=== PATIENT | female | born 1925 | race Caucasian/White ===

== ENCOUNTER 2016-10-05 13:54 | Emergency (ER) | payer MEDICARE ==
[~2016-10-05] VITALS: Ht 162.6 cm; Wt 56.8 kg
[~2016-10-05 13:54] MED LIST: /HCTZ25TA PO; AMLO5TAB2 PO; ARIC5TAB PO; ASPI81TA85 PO; ASPI81TAEC PO; ATOR1TAB19 PO; AUGM875T27 PO; CITA20TA2 PO; CITA20TA4 PO; DONETAB5 PO; HYDR25TAB PO; LIPI10TA PO; LOVE1INJ SC; LUMI0.01 OU; MIRA3350 PO; MULT1TAB8 PO; POTA10TA16 PO; TYLE325T5 PO; VITA100066 PO
[2016-10-05] MEDS ORDERED: MACR100C3 PO (14:11)
[2016-10-05] MEDS ORDERED: ACETAMINOPHEN 325 MG TAB As Ordered ONE (15:31)
[2016-10-05] MEDS ORDERED: ACETAMINOPHEN TAB 650MG DOSE (2X325MG) PO ONE (15:45)
[2016-10-05 16:16] VITALS: BP 171/89
--- NOTE | 2016-10-06 07:49 | REP ---
Right wrist series: Four views. History: Pain. Findings: There is advanced diffuse osteoporosis. Soft tissue swelling is seen about the wrist. There is osteoarthritis at the first carpometacarpal articulation. No fracture is seen. Impression: Diffuse osteopenia. Soft tissue swelling. No fracture or other acute abnormality. Signed by Misbah Méndez MD 10/06/2016 08:59 A
== END 2016-10-05 16:23 | disposition home or self-care (01) ==
LOC: M ED 15:19
DX: S63.521A Sprain of radiocarpal joint of right wrist, initial encounter (principal); W01.10XA Fall on same level from slipping, tripping and stumbling with subsequent striking against unspecified object, initial encounter; Y92.099 Unspecified place in other non-institutional residence as the place of occurrence of the external cause; Y93.01 Activity, walking, marching and hiking; Y99.9 Unspecified external cause status; M85.88 Other specified disorders of bone density and structure, other site; Z79.82 Long term (current) use of aspirin; Z79.899 Other long term (current) drug therapy; Z91.041 Radiographic dye allergy status

== ENCOUNTER 2016-11-16 22:10 | Inpatient (IN) | payer MEDICARE ==
[~2016-11-16] VITALS: Ht 157.5 cm; Wt 58.6 kg
[~2016-11-16 22:10] MED LIST changes: -AUGM875T27 PO; +AUGM875T28 PO; +MACR100C43 PO
--- NOTE | 2016-11-16 23:30 | REPUSA ---
CT of the head Clinical history: syncope. Comparison: 09/05/2015. Protocol: Multiple axial CT images obtained with 5 mm slice thickness were obtained through the head without administration of contrast. Findings: The ventricles and sulci are symmetric but prominent in size bilaterally. 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 There are periventricular areas of low attenuation throughout the deep white matter. There is no evidence of acute hemorrhage or infarct. There is no m idline shift, mass effect, or extra-axial fluid collection. The osseous structures are unremarkable. The visualized paranasal sinuses and mastoid air cells are clear. Impression: No acute hemorrhage or infarct. Findings are consistent with stable moderate age-related atrophy and chronic small vessel ischemic disease.
[2016-11-16 23:43] LABS: BASO # 0.1 K/mm3 (0.0-0.2); BASO % 0.6 % (0.0-1.0); EOS # 0.1 K/mm3 (0.0-0.50); LARGE UNSTAINED CELL # 0.1 K/mm3 (0.0-0.4); LARGE UNSTAINED CELL % 0.6 % (0.0-4.0); LYMPH # 0.9 K/mm3 (1.5-4.5); MEAN CORPUSCULAR HEMOGLOBIN 30.5 pg (27.0-33.0); MEAN CORPUSCULAR HGB CONC 33.5 g/dl (32.0-36.5); MEAN CORPUSCULAR VOLUME 91.1 fl (80.0-96.0); MONO # 0.4 K/mm3 (0.0-0.8); MONO % 3.8 % (0.0-5.0); NEUTROPHILS # 8.7 K/mm3 (1.8-7.7); PLATELET COUNT, AUTOMATED 267 k/mm3 (150-450); RED CELL DISTRIBUTION WIDTH 13.8 % (11.5-14.5); WHITE BLOOD COUNT 10.2 K/mm3 (4.0-10.0)
[2016-11-17 00:16] LABS: ANION GAP 7 MEQ/L (8-16); BLOOD UREA NITROGEN 22 MG/DL (7-18); CALCIUM LEVEL 8.9 MG/DL (8.8-10.2); CARBON DIOXIDE LEVEL 30 MEQ/L (21-32); CHLORIDE LEVEL 107 MEQ/L (98-107); FREE T4 1.02 NG/DL (0.76-1.46); GLOMERULAR FILTRATION RATE 55.6 (>32); GLUCOSE, FASTING 135 MG/DL (83-110); MAGNESIUM LEVEL 1.9 MG/DL (1.8-2.4); POTASSIUM SERUM 3.2 MEQ/L (3.5-5.1); SODIUM LEVEL 144 MEQ/L (136-145)
[2016-11-17] MEDS ORDERED: SODIUM CHLORIDE 0.9% 1000 ML IV ONE (00:30)
[2016-11-17] MEDS: NS 1,000 ML IV SCH ×2 (00:30→11:44)
[2016-11-17] MEDS ORDERED: POTASSIUM CHLORIDE 10 MEQ SR TABLET PO ONE ×2 (01:00→10:00)
--- NOTE | 2016-11-17 01:00 | REPUSA ---
CT of the right hip without contrast Clinical statement: Pain. Technique: Multiple axial CT images were obtained with 5 mm cuts through the right hip without admini stration of contrast. Coronal and sagittal reconstructions were also obtained. No comparison is available. Findings: The open reduction internal fixation of the proximal right femur is intact. There is no bhupinder dence of loosening or displacement of the surgical hardware. There is an acute nondisplaced fracture of the right inferior pubic ramus. The superficial soft tissues are unremarkable. The joint space is moderately narrow. Impression: 1. Acute nondisplaced fracture of the right inferior pubic ramus. 2. Moderate right hip osteoarthritis. 3. Open reduction internal fixation of the proximal right femur is intact.
[2016-11-17] MEDS ORDERED: HYDR25TAB PO (01:38)
[2016-11-17] MEDS ORDERED: VITMTA PO (01:38)
[2016-11-17] MEDS ORDERED: ASPI81TA21 PO (01:39)
--- NOTE | 2016-11-17 02:09 | ECGEPIP ---
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
[2016-11-17] MEDS ORDERED: BISACODYL 5 MG TAB PO PRN (02:45)
[2016-11-17 03:00] VITALS: BP 169/79
--- NOTE | 2016-11-17 03:19 | HPEPDOC ---
General Date of Admission Nov 17, 2016 at 01:49 Primary Care Physician: Jr Bryant Collins Attending Physician: SHERINE MOORE MD Chief Complaint The patient is a 89-year-old female admitted with a reason for visit of Pelvic Fracture. Source: Other (Son (Caregiver)) History of Present Illness PRIMARY CARE PROVIDER: Dr. Jake Bryant CHIEF COMPLAINT: fall and R hip pain HISTORY OF PRESENT ILLNESS: Ms. Lockett is a 89 yo F with a PMH of HTN, HLD, diabetes controlled with diet , aortic stenosis with aortic regurgitation, TIA hx, Alzheimer's dementia, and glaucoma who presented to the [facility] ED after an unwitnessed fall in her bathroom at home at ~11 PM on 11/16. Adopted son (patient's actual grandson) states that patient yelled and called son to where she was lying down on her back in her bathroom. Son states he then went into the living room to call 9-1-1. During that time, patient reportedly independently got up without telling son, used her cane to get back into her bedroom and back onto her bed. She then reportedly went from her bed into her walker (has a sitting walker). By the time son came back from the living room to patient's room, patient was already in her walker. Then, son reports that patient was brought to the ED. Due to dementia, patient unable to remember details of her fall and what events occurred prior to fall. Denies dizziness or lightheadedness. Denies fevers, chills, headache, chest pain, SOB, nausea, vomiting, diarrhea, constipation, abdominal pain, blurred vision (wears glasses). Denies pain anywhere when not moving. Otherwise, she admits to R-sided pelvic pain. Denies runny nose, sore throat, cough. Patient's son states patient's urine was a little darker than usual. When asked patient if she had urinary symptoms, she stated she had to " go right now", however she was not able to urinate. Patient admitted to her feet feeling cold. Denied remembering hitting her head. In the ED, patient was afebrile but was found to have positive orthostatic vital signs. In addition, she was found to be hypokalemic with K of 3.2 and this was replaced with 60 mEq of KCl. She was given 500 mL bolus of NS and NS was continued at 75 mL/hr. BMP was significant for K of 3.2, BUN of 22, and Cr was normal at 1, fasting glucose was 135. Lactic acid was WNL. Mg was 1.9. CKMB and troponin 1st set was negative. CBC was significant for WBC of 10.2. TSH and Free T4 were WNL. PAST MEDICAL HISTORY: HTN HLD Diabetes mellitus controlled with diet Aortic stenosis with aortic regurgitation TIA hx Alzheimer's dementia Glaucoma PAST SURGICAL HISTORY: Hysterectomy Cholecystectomy R Intramedullary nailing of the R hip and femur for comminuted R hip fracture MEDICATIONS: Please see below for full list. ALLERGIES: CT dye SOCIAL HISTORY: Lives at home with son who is her senior strategy analyst; son receives disability Former smoker. Quit smoking many years ago. Denies being a heavy smoker ever. Denies EtOH use. Denies illicit drug use. Admits to having 1 cat and 1 dog. FAMILY HISTORY: Mother: many strokes Daughter: of woman cancer in 2005, had thyroid disease Sister: heart problem, back cancer with surgery on back Sister: of breast cancer Brother: of [place]. CODE STATUS: DNR (as per son)--has a copy of this order at home and son states there is a copy of this order at the hospital itself REVIEW OF SYSTEMS: All ROS are negative except for that which is stated above in the HPI. LABORATORY DATA: Please see below for full labs. MICROBIOLOGY: Urine cx ordered. ELECTROCARDIOGRAM: Sinus Rhythm with marked L axis deviation, pattern consistent with pulmonary disease, ventricular rate: 60 bpm, OH interval: 193 ms, QRS duration: 90 ms, QTc: 419 ms Similar EKG to prior when compared to 09/05/15 RADIOLOGY: Head CT without contrast: (-) CT of the R hip without contrast: 1. Acute nondisplaced fracture of the right inferior pubic ramus. 2. Moderate right hip osteoarthritis. 3. Open reduction internal fixation of the proximal right femur is intact. ASSESSMENT: 89 yo F is presenting for an acute nondisplaced fracture of the R inferior pubic ramus and orthostatic hypotension. Had hypokalemia of 3.2 and leukocytosis of 10.2. PLAN: Admit to inpatient service. Give NS @ 75 mLs/hr as orthostatic vital signs were (+). Obtain UA and urine cx. Monitor daily CBCs and BMPs as well as daily Mg levels. Give pain medication: tylenol PRN mild pain and percocet PRN moderate pain. Continue home medications. Consult physical therapy for further treatment and recommendations. DVT ppx: SC heparin DNR as per son who states we have the form at the hospital Immunizations as per protocol. My preceptor for this patient encounter was Dr. Sherine Moore, and was physically present in the building during the encounter and was fully available. As needed , all aspects of the patient interview, examination, medical decision making process, and medical care plan development were reviewed and approved by the preceptor. Preceptor is aware and concurs with the plan as stated in the body of this note and will attest to such by his/her cosignature. Home Medications Scheduled (Senna Plus 8.6-50 mg) 1 Tab Tab, 1 TAB PO BID Amlodipine Besylate (Amlodipine Besylate) 10 Mg Tab, 10 MG PO DAILY Aspirin (Aspir-Low) 81 Mg Tab, 81 MG PO DAILY, (Reported) Atorvastatin Calcium (Atorvastatin Calcium) 10 Mg Tab, 10 MG PO QHS, (Reported) Citalopram Hydrobromide (Citalopram Hydrobromide) 20 Mg Tab, 20 MG PO DAILY, ( Reported) Donepezil Hcl (Donepezil HCl) 5 Mg Tab, 5 MG PO QHS, (Reported) Ferrous Sulfate (Ferrous Sulfate) 325 Mg Tab, 325 MG PO BID Hydrochlorothiazide (Hydrochlorothiazide) 25 Mg Tab, 25 MG PO DAILY, (Reported) Multivitamins *[facility] STOCKED* (Thera M Plus *[facility] STOCKED*) 1 Tab Tab, 1 TAB PO DAILY, (Reported) Potassium Chloride (Potassium Chloride ER) 10 Meq Tab, 10 MEQ PO BID, (Reported) Scheduled PRN Bisacodyl (Bisacodyl EC) 5 Mg Tab, 5 MG PO DAILYPRN PRN for CONSTIPATION Oxycodone/Acetaminophen (Percocet 5MG/325MG Tablet) 1 Tab Tab, 1 TAB PO Q4HP PRN for MODERATE PAIN (PS 5-7) Allergies Coded Allergies: Contrast Media (Verified Allergy, Intermediate, red rash, 10/05/16) Physical Examination General Exam: Positive: Alert, Cooperative, No Acute Distress, Other (elderly female resting comfortably in bed) Eye Exam: Positive: PERRLA, EOMI, Other Eye Symptoms (Some yellow crusting noted in eyelashes of R eye), Negative: Sclera icteric ENT Exam: Positive: Atraumatic, Mucous membr. moist/pink, Pharynx Normal, Tongue Midline, Negative: Pharyngeal Edema Neck Exam: Positive: Supple, Negative: JVD, thyromegaly, Lymphadenopathy Chest Exam: Positive: Clear to auscultation, Normal air movement, Negative: Rales, Rhonchi, Wheezing Heart Exam: Positive: Rate Normal, Regular Rhythm, Normal S1, Normal S2, Negative: Gallops, Murmurs, Rubs Abdomen Exam: Positive: Normal bowel sounds, Soft, Negative: Tenderness, Hepatospenomegaly Extremity Exam: Positive: Normal pulses, Other (very cool feet to touch bilaterally. +Tenderness with pressure to R lateral leg/hip in area of R pelvis. ), Negative: Clubbing, Cyanosis, Edema Skin Exam: Negative: Rash Neuro Exam: Positive: Normal Speech, Other (CN 2-12 intact bilaterally. 5/5 strength in upper extremities bilaterally. Able to extend LLE. Unable to lift and extend RLE most likely secondary to pain. ) Psych Exam: Positive: Mental status NL, Mood NL, Other (Oriented to person, place, but not to time: not to month, day, or year. Could not name the president. ), Negative: Memory Intact, Oriented x 3 Vital Signs Vital Signs Date Time Temp Pulse Resp B/P (MAP) Pulse Ox O2 Delivery O2 Flow Rate FiO2 11/17/16 01:55 68 99 11/16/16 23:52 142/66 (91) 140/65 (90) 152/65 (94) 11/16/16 22:12 98.9 16 Room Air Laboratory Data Labs 24H Laboratory Tests 2 11/16/16 23:37: White Blood Count 10.2H, Red Blood Count 4.33, Hemoglobin 13.2, Hematocrit 39.4 , Mean Corpuscular Volume 91.1, Mean Corpuscular Hemoglobin 30.5, Mean Corpuscular Hemoglobin Concent 33.5, Red Cell Distribution Width 13.8, Platelet Count 267, Neutrophils (%) (Auto) 86.0H, Lymphocytes (%) (Auto) 8.0L, Monocytes (%) (Auto) 3.8, Eosinophils (%) (Auto) 1.0, Basophils (%) (Auto) 0.6, Neutrophils # (Auto) 8.7H, Lymphocytes # (Auto) 0.9L, Monocytes # (Auto) 0.4, Eosinophils # (Auto) 0.1, Basophils # (Auto) 0.1, Large Unclassified Cells % 0.6 , Large Unclassified Cells # 0.1, Anion Gap 7L, Glomerular Filtration Rate 55.6 , Lactic Acid Level 1.5, Blood Urea Nitrogen 22H, Creatinine 1.00, Sodium Level 144, Potassium Level 3.2L, Chloride Level 107, Carbon Dioxide Level 30, Calcium Level 8.9, Total Creatine Kinase 151, Magnesium Level 1.9, Creatine Kinase MB 3.2, Creatine Kinase MB Relative Index 2.11, Troponin I < 0.02, Thyroid Stimulating Hormone (TSH) 2.410, Free Thyroxine 1.02 11/16/16 23:43: Bedside Glucose (Misc Panel) 111H CBC/BMP Laboratory Tests 11/16/16 23:37 Red Blood Count 4.33, Mean Corpuscular Volume 91.1, Mean Corpuscular Hemoglobin 30.5, Mean Corpuscular Hemoglobin Concent 33.5, Red Cell Distribution Width 13.8 , Neutrophils (%) (Auto) 86.0 H, Lymphocytes (%) (Auto) 8.0 L, Monocytes (%) ( Auto) 3.8, Eosinophils (%) (Auto) 1.0, Basophils (%) (Auto) 0.6, Neutrophils # ( Auto) 8.7 H, Lymphocytes # (Auto) 0.9 L, Monocytes # (Auto) 0.4, Eosinophils # ( Auto) 0.1, Basophils # (Auto) 0.1, Calcium Level 8.9, Total Creatine Kinase 151 Plan / VTE VTE Prophylaxis Ordered?: Yes (heparin) SYEDA HOLLINS OGME-1 Nov 17, 2016 03:19
[2016-11-17 06:00] VITALS: BP 167/79
[2016-11-17] MEDS: HEPARIN SOD (PORCINE) 5000 UNITS/ML VIAL SC SCH ×3 (06:04→20:22)
[2016-11-17 07:17] LABS: MEAN CORPUSCULAR HEMOGLOBIN 30.7 pg (27.0-33.0); MEAN CORPUSCULAR HGB CONC 33.7 g/dl (32.0-36.5); MEAN CORPUSCULAR VOLUME 90.9 fl (80.0-96.0); RED CELL DISTRIBUTION WIDTH 13.8 % (11.5-14.5); WHITE BLOOD COUNT 7.7 K/mm3 (4.0-10.0)
[2016-11-17 07:39] LABS: ANION GAP 8 MEQ/L (8-16); BLOOD UREA NITROGEN 20 MG/DL (7-18); CALCIUM LEVEL 8.3 MG/DL (8.8-10.2); CARBON DIOXIDE LEVEL 28 MEQ/L (21-32); CHLORIDE LEVEL 109 MEQ/L (98-107); CREATININE FOR GFR 0.72 MG/DL (0.55-1.02); GLOMERULAR FILTRATION RATE > 60.0 (>32); GLUCOSE, FASTING 139 MG/DL (83-110); POTASSIUM SERUM 3.1 MEQ/L (3.5-5.1); SODIUM LEVEL 145 MEQ/L (136-145)
[2016-11-17] MEDS: hydroCHLOROthiazide 25 MG TAB PO SCH (08:25)
[2016-11-17] MEDS: ASPIRIN 81 MG ENTERIC TAB PO SCH (08:25)
[2016-11-17] MEDS: CitaloPRAM (CeleXA) 20 MG TAB PO SCH (08:25)
[2016-11-17] MEDS: MULTIVITAMINS/MINERALS THERAP 1 TAB PO SCH (08:25)
[2016-11-17] MEDS: POTASSIUM CHLORIDE 10 MEQ SR TABLET PO SCH ×2 (08:26→20:21)
[2016-11-17] MEDS: amLODIPine 5 MG TAB PO SCH (08:26)
--- NOTE | 2016-11-17 09:48 | REP ---
REASON: Pain after trauma. COMPARISON: AP pelvis 05/19/2013 The previously described comminuted proximal femoral fracture has been openly reduced and internally fixed with a lag screw and intramedullary sheila. There is an acute fracture involving the right superior pubic ramus and I suspect there is a concomitant nondisplaced right inferior pubic ramus fracture. The bones are demineralized. Chronic change is seen involving the hips and imaged portion of the spine along with chronic changes involving the sacroiliac joints. IMPRESSION: Right superior and probably inferior pubic rami fractures. RIGHT FEMUR: AP and lateral views of the right femur show an intramedullary sheila. The inferior pubic ramus fracture suspected on the AP pelvis is now well imaged and can be confirmed that there are right-sided superior and inferior pubic rami fractures. There are no other fractures. AP and lateral views of the left femur show chronic changes with hip joint space narrowing and bony demineralization. There is no fracture or dislocation. Signed by Micheal Bolivar DO 11/17/2016 10:16 A
[2016-11-17 14:00] VITALS: BP 133/62
[2016-11-17] MEDS: PERCOCET 5MG/325MG TAB PO PRN ×2 (14:20→18:19)
[2016-11-17] MEDS: ATORVASTATIN 10 MG TAB PO SCH (20:22)
[2016-11-17 22:00] VITALS: BP 166/77
[2016-11-18] MEDS: ACETAMINOPHEN TAB 650MG DOSE (2X325MG) PO PRN ×2 (02:52→20:35)
[2016-11-18] MEDS: NS 1,000 ML IV SCH (03:10)
[2016-11-18] MEDS: HEPARIN SOD (PORCINE) 5000 UNITS/ML VIAL SC SCH ×3 (05:38→20:35)
[2016-11-18 06:00] VITALS: BP 165/89
[2016-11-18 06:03] LABS: BASO % 0.4 % (0.0-1.0); EOS % 0.6 % (0.0-3.0); LARGE UNSTAINED CELL # 0.1 K/mm3 (0.0-0.4); LARGE UNSTAINED CELL % 0.8 % (0.0-4.0); LYMPH # 1.1 K/mm3 (1.5-4.5); LYMPH % 13.6 % (24.0-44.0); MEAN CORPUSCULAR HEMOGLOBIN 30.6 pg (27.0-33.0); MEAN CORPUSCULAR HGB CONC 33.5 g/dl (32.0-36.5); MEAN CORPUSCULAR VOLUME 91.3 fl (80.0-96.0); MONO # 0.5 K/mm3 (0.0-0.8); MONO % 6.2 % (0.0-5.0); NEUTROPHILS # 5.9 K/mm3 (1.8-7.7); NEUTROPHILS % 78.5 % (36.0-66.0); PLATELET COUNT, AUTOMATED 215 k/mm3 (150-450); RED CELL DISTRIBUTION WIDTH 13.7 % (11.5-14.5); WHITE BLOOD COUNT 7.5 K/mm3 (4.0-10.0)
[2016-11-18 06:10] LABS: ANION GAP 9 MEQ/L (8-16); BLOOD UREA NITROGEN 10 MG/DL (7-18); CALCIUM LEVEL 8.8 MG/DL (8.8-10.2); CARBON DIOXIDE LEVEL 26 MEQ/L (21-32); CHLORIDE LEVEL 107 MEQ/L (98-107); CREATININE FOR GFR 0.64 MG/DL (0.55-1.02); GLOMERULAR FILTRATION RATE > 60.0 (>32); GLUCOSE, FASTING 132 MG/DL (83-110); MAGNESIUM LEVEL 1.9 MG/DL (1.8-2.4); POTASSIUM SERUM 3.6 MEQ/L (3.5-5.1); SODIUM LEVEL 142 MEQ/L (136-145)
[2016-11-18] MEDS: MULTIVITAMINS/MINERALS THERAP 1 TAB PO SCH (08:05)
[2016-11-18] MEDS: hydroCHLOROthiazide 25 MG TAB PO SCH (08:05)
[2016-11-18] MEDS: ASPIRIN 81 MG ENTERIC TAB PO SCH (08:06)
[2016-11-18] MEDS: POTASSIUM CHLORIDE 10 MEQ SR TABLET PO SCH ×2 (08:06→20:36)
[2016-11-18] MEDS: CitaloPRAM (CeleXA) 20 MG TAB PO SCH (08:06)
[2016-11-18] MEDS: amLODIPine 5 MG TAB PO SCH (08:06)
[2016-11-18] MEDS: PERCOCET 5MG/325MG TAB PO PRN ×2 (10:18→14:47)
[2016-11-18 14:00] VITALS: BP 113/63
--- NOTE | 2016-11-18 16:01 | IPN ---
DATE: 11/18/2016 SUBJECTIVE: The patient tells me she is feeling well. She denies any pain. She denies any chest pain or shortness of breath. She is oriented to person, but not to place, time, or to situation. OBJECTIVE: VITAL SIGNS: Temperature 98.3, pulse 74, respiratory rate 20, blood pressure 175/89, oxygen saturation 95% in room air. GENERAL: She is a frail, elderly, female laying flat in bed. She does not appear to be in any acute distress. HEENT: Cranial nerves II-XII are grossly intact. She has moist mucous membranes. No elevation in central venous pressure (CVP). CARDIOVASCULAR EXAM: S1, S2, regular. RESPIRATORY EXAM: Fairly clear. ABDOMINAL EXAM: Bowel sounds are present. The abdomen is soft. EXTREMITIES: No clubbing, cyanosis, or edema. LABORATORY STUDIES: WBC 7.5, hemoglobin 11.4, hematocrit 34, platelet count 215. Chemistry panel: Sodium 142, potassium 3.6, chloride 107, bicarbonate 26, BUN 10, creatinine 0.6, magnesium 1.9. No new imaging. ASSESSMENT AND PLAN: This is an 89-year-old female status post what is likely a mechanical fall with nondisplaced pubic rami fracture. 1. Fall. Fall was reportedly unwitnessed, however the patient was in the bathroom. After hitting the ground, she did call her adopted grandson who presented to her side immediately. She did not hit her head or lose consciousness. When the grandson exited the bathroom to make the phone call, the patient got up and used her walker and walked to her bed alone. The patient, at her baseline, has fairly significant dementia. In the emergency room (ER), she was found to have a nondisplaced pubic rami fracture. It seems likely the patient had a mechanical fall. There is no signs or symptoms of any syncopal like episode. No postictal status. No bowel or bladder incontinence. The patient denies any palpitations at the present time but cannot recall any persistence of prodromal symptoms. Her neurological exam other than her baseline mental status is nonfocal. 2. Nondisplaced pubic rami fracture. Pain control and physical therapy. At this time, she is not felt okay to be discharged home. I suspect that given her advanced dementia she is likely not going to be safe unless she has 24/[address] versus care home placement. Continuing to have her work with physical therapy. 3. Dyslipidemia. The patient is on Lipitor. 4. Hypertension. Controlled with Norvasc and hydrochlorothiazide. 5. Deep venous thrombosis (DVT) prophylaxis. The patient is on heparin. 6. Dementia. As outlined above. DISPOSITION: Patient and family services (PFS) consult placed, pending physical therapy (PT).
[2016-11-18] MEDS: ATORVASTATIN 10 MG TAB PO SCH (20:35)
[2016-11-18 22:00] VITALS: BP 121/67
[2016-11-19 06:00] VITALS: BP 128/58
[2016-11-19] MEDS: HEPARIN SOD (PORCINE) 5000 UNITS/ML VIAL SC SCH ×3 (06:03→21:31)
[2016-11-19] MEDS ORDERED: POTASSIUM CHLORIDE 10 MEQ SR TABLET PO ONE (07:15)
[2016-11-19 07:18] LABS: BASO # 0.1 K/mm3 (0.0-0.2); EOS # 0.2 K/mm3 (0.0-0.50); EOS % 3.4 % (0.0-3.0); LARGE UNSTAINED CELL # 0.1 K/mm3 (0.0-0.4); LARGE UNSTAINED CELL % 1.5 % (0.0-4.0); LYMPH # 1.6 K/mm3 (1.5-4.5); LYMPH % 21.1 % (24.0-44.0); MEAN CORPUSCULAR HEMOGLOBIN 31.4 pg (27.0-33.0); MEAN CORPUSCULAR HGB CONC 33.8 g/dl (32.0-36.5); MONO # 0.5 K/mm3 (0.0-0.8); MONO % 6.8 % (0.0-5.0); NEUTROPHILS # 4.6 K/mm3 (1.8-7.7); NEUTROPHILS % 66.2 % (36.0-66.0); PLATELET COUNT, AUTOMATED 202 k/mm3 (150-450); RED CELL DISTRIBUTION WIDTH 13.9 % (11.5-14.5); WHITE BLOOD COUNT 6.9 K/mm3 (4.0-10.0)
[2016-11-19 07:39] LABS: CHLORIDE LEVEL 102 MEQ/L (98-107); POTASSIUM SERUM 3.8 MEQ/L (3.5-5.1); SODIUM LEVEL 139 MEQ/L (136-145)
[2016-11-19 07:59] LABS: ANION GAP 8 MEQ/L (8-16); BLOOD UREA NITROGEN 17 MG/DL (7-18); CALCIUM LEVEL 8.1 MG/DL (8.8-10.2); CARBON DIOXIDE LEVEL 29 MEQ/L (21-32); CREATININE FOR GFR 0.71 MG/DL (0.55-1.02); GLOMERULAR FILTRATION RATE > 60.0 (>32); GLUCOSE, FASTING 109 MG/DL (83-110)
[2016-11-19] MEDS: ACETAMINOPHEN TAB 650MG DOSE (2X325MG) PO PRN (09:07)
[2016-11-19] MEDS: POTASSIUM CHLORIDE 10 MEQ SR TABLET PO SCH ×2 (09:07→21:32)
[2016-11-19] MEDS: MULTIVITAMINS/MINERALS THERAP 1 TAB PO SCH (09:07)
[2016-11-19] MEDS: ASPIRIN 81 MG ENTERIC TAB PO SCH (09:08)
[2016-11-19] MEDS: hydroCHLOROthiazide 25 MG TAB PO SCH (09:08)
[2016-11-19] MEDS: CitaloPRAM (CeleXA) 20 MG TAB PO SCH (09:08)
[2016-11-19] MEDS: amLODIPine 5 MG TAB PO SCH (09:08)
[2016-11-19 14:00] VITALS: BP 144/75
--- NOTE | 2016-11-19 21:02 | IPN ---
DATE: 11/19/2016 The patient is seen and examined. No acute events overnight. Denies any chest pain, pressure or discomfort. Denies any fevers or chills. VITAL SIGNS: Temperature 99.5, pulse 77, respirations 16, blood pressure 144/75, pulse oximetry 97% on room air. LABORATORY DATA: WBC 6.9, hemoglobin and hematocrit 10.1/29.8, platelets 202. Chemistry: Sodium 139, potassium 3.8, chloride 102, bicarbonate 29, BUN 17, creatinine 0.71. PHYSICAL EXAMINATION: GENERAL: The patient is arousable, frail, in no acute distress. HEENT: Normocephalic, atraumatic. Cranial nerves II through XII grossly intact. Moist mucous membranes. CARDIAC: Regular. S1, S2. PULMONARY: Bilaterally clear to auscultation. ABDOMEN: Soft, nontender. Positive bowel sounds. EXTREMITIES: No clubbing, cyanosis or edema. ASSESSMENT AND PLAN: This is an 89-year-old female patient with underlying medical history of dementia, hypertension, diabetes, diet controlled, aortic stenosis with aortic regurgitation, TIA history, Alzheimer's dementia and glaucoma, who presented status post unwitnessed fall in the bathroom with likely mechanical fall with nondisplaced pubic rami fracture. 1. Fall, unwitnessed in the bathroom with no head injury of loss of consciousness and found to have a nondisplaced pubic rami fracture, likely from the fall. The patient with limited weight bearing secondary to pain on admission, has not presented with postictal state. As per family, no bowel or bladder incontinence. Neurologically, the patient apparently is at baseline, nonfocal. Physical therapy (PT) and pain regimen as prescribed. Radiological imaging appreciated. 2. Nondisplaced pubic rami fracture. Physical therapy. The patient is not safe for discharge. Potentially needs 24/7 care versus [facility] facility. Continue working with physical therapy. 3. Dyslipidemia. Continue statin. 4. Hypertension. Continue Norvasc and hydrochlorothiazide. 5. Dementia. Supportive care. 6. Deep vein thrombosis (DVT) prophylaxis. Heparin subcutaneously. DISPOSITION: Pending physical therapy (PT) and clinical improvement. May need 24/7 care at home.
[2016-11-19] MEDS: ATORVASTATIN 10 MG TAB PO SCH (21:31)
[2016-11-19 22:00] VITALS: BP 141/74
[2016-11-20] MEDS: ACETAMINOPHEN TAB 650MG DOSE (2X325MG) PO PRN ×3 (05:35→22:18)
[2016-11-20] MEDS: HEPARIN SOD (PORCINE) 5000 UNITS/ML VIAL SC SCH ×3 (05:35→22:18)
[2016-11-20 06:00] VITALS: BP 125/59
[2016-11-20 06:50] LABS: BASO % 0.8 % (0.0-1.0); EOS # 0.2 K/mm3 (0.0-0.50); EOS % 3.8 % (0.0-3.0); LARGE UNSTAINED CELL # 0.1 K/mm3 (0.0-0.4); LARGE UNSTAINED CELL % 1.6 % (0.0-4.0); LYMPH # 1.4 K/mm3 (1.5-4.5); LYMPH % 20.2 % (24.0-44.0); MEAN CORPUSCULAR HEMOGLOBIN 31.2 pg (27.0-33.0); MEAN CORPUSCULAR HGB CONC 33.6 g/dl (32.0-36.5); MEAN CORPUSCULAR VOLUME 92.9 fl (80.0-96.0); MONO # 0.4 K/mm3 (0.0-0.8); MONO % 6.6 % (0.0-5.0); NEUTROPHILS # 4.4 K/mm3 (1.8-7.7); PLATELET COUNT, AUTOMATED 208 k/mm3 (150-450); WHITE BLOOD COUNT 6.6 K/mm3 (4.0-10.0)
[2016-11-20 07:10] LABS: ANION GAP 7 MEQ/L (8-16); BLOOD UREA NITROGEN 20 MG/DL (7-18); CALCIUM LEVEL 8.4 MG/DL (8.8-10.2); CARBON DIOXIDE LEVEL 29 MEQ/L (21-32); CHLORIDE LEVEL 101 MEQ/L (98-107); CREATININE FOR GFR 0.67 MG/DL (0.55-1.02); GLOMERULAR FILTRATION RATE > 60.0 (>32); GLUCOSE, FASTING 109 MG/DL (83-110); MAGNESIUM LEVEL 1.9 MG/DL (1.8-2.4); POTASSIUM SERUM 4.1 MEQ/L (3.5-5.1); SODIUM LEVEL 137 MEQ/L (136-145)
[2016-11-20] MEDS: CitaloPRAM (CeleXA) 20 MG TAB PO SCH (08:29)
[2016-11-20] MEDS: amLODIPine 5 MG TAB PO SCH (08:29)
[2016-11-20] MEDS: POTASSIUM CHLORIDE 10 MEQ SR TABLET PO SCH ×2 (08:29→22:18)
[2016-11-20] MEDS: ASPIRIN 81 MG ENTERIC TAB PO SCH (08:29)
[2016-11-20] MEDS: MULTIVITAMINS/MINERALS THERAP 1 TAB PO SCH (08:30)
[2016-11-20] MEDS: hydroCHLOROthiazide 25 MG TAB PO SCH (08:30)
[2016-11-20 14:00] VITALS: BP 167/70
--- NOTE | 2016-11-20 18:50 | IPN ---
DATE: 11/20/2016 The patient is seen and examined. The patient is demented, poor historian, does not know why she is here. She is reminded that she had a pubic rami fracture and is admitted at the hospital for physical therapy. The patient denies any chest pain, pressure or discomfort, fevers, chills, shortness of breath. Denies any significant pain. VITAL SIGNS: Temperature 99.6, pulse 86, respiratory rate 18, blood pressure 167/70, pulse oximetry 98% on room air. LABORATORY DATA: WBC 6.6, hemoglobin and hematocrit 9.7/29, platelets 208. Chemistry: Sodium 137, potassium 4.1, chloride 101, bicarbonate 29, BUN 20, creatinine 0.67. PHYSICAL EXAMINATION: GENERAL: The patient is arousable in no acute distress, frail. HEENT: Normocephalic, atraumatic. Moist mucous membranes. NEUROLOGIC: Cranial nerves II-XII grossly intact. CARDIOVASCULAR: Regular rate and rhythm with normal S1, S2, 3/6 systolic murmur noticed. The patient does have a history of aortic stenosis. PULMONARY: Bilaterally clear to auscultation. ABDOMEN: Soft, nontender. Positive bowel sounds. EXTREMITIES: No clubbing, cyanosis, or edema. ASSESSMENT AND PLAN: This is an 89-year-old female patient with underlying medical history of dementia, hypertension, diabetes diet-controlled, aortic stenosis with aortic regurgitation, transient ischemic attack (TIA), history of Alzheimer's dementia, and glaucoma who presented status post unwitnessed fall in the bathroom, likely a mechanical fall, with nondisplaced pubic rami fracture. 1. Fall, unwitnessed in the bathroom with no head injury or loss of consciousness, found to have a nondisplaced pubic rami fracture, likely from the fall. The patient with limited weightbearing secondary to pain on admission, has not presented with postictal. As per family, no bowel or bladder incontinence. Neurologically, the patient is at baseline, nonfocal. Physical therapy and pain regimen as prescribed. Radiological image appreciated. 2. Nondisplaced pubic rami fracture. Physical therapy, pain regimen. Not safe for discharge. Potentially needs 24/7 care versus assisted facility. Continue working with physical therapy. 3. Dyslipidemia. Continue statin. 4. Hypertension. Continue Norvasc and hydrochlorothiazide. 5. Dementia. Supportive care. 6. Deep vein thrombosis (DVT) prophylaxis. Heparin subcutaneous. DISPOSITION: Pending physical therapy, clinical improvement, may need 24/7 care versus assisted facility.
[2016-11-20 22:00] VITALS: BP 173/81
[2016-11-20] MEDS: ATORVASTATIN 10 MG TAB PO SCH (22:18)
[2016-11-21] MEDS: HEPARIN SOD (PORCINE) 5000 UNITS/ML VIAL SC SCH ×3 (05:28→22:07)
[2016-11-21 06:00] VITALS: BP 130/62
[2016-11-21 07:09] LABS: BASO % 0.8 % (0.0-1.0); EOS # 0.2 K/mm3 (0.0-0.50); EOS % 3.8 % (0.0-3.0); LARGE UNSTAINED CELL # 0.1 K/mm3 (0.0-0.4); LARGE UNSTAINED CELL % 2.2 % (0.0-4.0); LYMPH # 1.5 K/mm3 (1.5-4.5); LYMPH % 24.5 % (24.0-44.0); MEAN CORPUSCULAR HEMOGLOBIN 30.8 pg (27.0-33.0); MEAN CORPUSCULAR HGB CONC 33.9 g/dl (32.0-36.5); MEAN CORPUSCULAR VOLUME 90.8 fl (80.0-96.0); MONO # 0.5 K/mm3 (0.0-0.8); NEUTROPHILS # 3.5 K/mm3 (1.8-7.7); NEUTROPHILS % 60.8 % (36.0-66.0); PLATELET COUNT, AUTOMATED 214 k/mm3 (150-450); RED CELL DISTRIBUTION WIDTH 14.1 % (11.5-14.5); WHITE BLOOD COUNT 5.7 K/mm3 (4.0-10.0)
[2016-11-21 07:25] LABS: ANION GAP 9 MEQ/L (8-16); BLOOD UREA NITROGEN 19 MG/DL (7-18); CALCIUM LEVEL 8.2 MG/DL (8.8-10.2); CARBON DIOXIDE LEVEL 27 MEQ/L (21-32); CHLORIDE LEVEL 101 MEQ/L (98-107); CREATININE FOR GFR 0.68 MG/DL (0.55-1.02); GLOMERULAR FILTRATION RATE > 60.0 (>32); GLUCOSE, FASTING 93 MG/DL (83-110); SODIUM LEVEL 137 MEQ/L (136-145)
[2016-11-21] MEDS: MULTIVITAMINS/MINERALS THERAP 1 TAB PO SCH (09:25)
[2016-11-21] MEDS: amLODIPine 5 MG TAB PO SCH (09:26)
[2016-11-21] MEDS: POTASSIUM CHLORIDE 10 MEQ SR TABLET PO SCH ×2 (09:26→22:07)
[2016-11-21] MEDS: hydroCHLOROthiazide 25 MG TAB PO SCH (09:26)
[2016-11-21] MEDS: CitaloPRAM (CeleXA) 20 MG TAB PO SCH (09:26)
[2016-11-21] MEDS: ASPIRIN 81 MG ENTERIC TAB PO SCH (09:26)
[2016-11-21 14:00] VITALS: BP 147/65
[2016-11-21] MEDS: ACETAMINOPHEN TAB 650MG DOSE (2X325MG) PO PRN ×2 (14:43→22:07)
--- NOTE | 2016-11-21 19:31 | IPN ---
DATE: 11/21/2016 Patient seen and examined. No acute events overnight. Patient baseline demented, poor historian. Denies any chest pain, pressure, discomfort, shortness of breath, fevers, chills. Tolerating oral. VITAL SIGNS: Temperature 98.1, pulse 76, respirations 18, blood pressure 147/65, pulse oximetry 98% on room air. LABORATORY DATA: WBC 5.7, hemoglobin and hematocrit 8.8 over 25.9, platelets 214. Chemistry: Sodium 137, potassium 4, chloride 101, bicarbonate 27, BUN 19, creatinine 0.68. PHYSICAL EXAMINATION: GENERAL: Patient arousable, in no acute distress, frail. HEENT: Normocephalic, atraumatic. Moist mucous membranes. NEUROLOGIC: No focal deficits. Cranial nerves II-XII grossly intact. CARDIOVASCULAR: Regular rate and rhythm. Normal S1, S2, 3/6 systolic murmur noted. The patient does have a history of aortic stenosis. PULMONARY: Bilaterally clear to auscultation. ABDOMEN: Soft, nontender. Positive bowel sounds. EXTREMITIES: No clubbing, cyanosis or edema. ASSESSMENT AND PLAN: This is an 89-year-old female patient with underlying medical history of dementia, hypertension, diabetes, diet-controlled, aortic stenosis with aortic regurgitation, transient ischemic attack (TIA), history of Alzheimer's dementia, glaucoma, presented status post unwitnessed fall in the bathroom, likely a mechanical fall with nondisplaced pubic rami fracture. Problems: 1. Fall, unwitnessed in the bathroom with no head injury or loss of consciousness, found to have a nondisplaced pubic rami fracture, likely from the fall. Patient with limited weightbearing secondary to pain on admission. Has no report of postictal state. As per family, no bowel or bladder incontinence. Neurologically, the patient remains at baseline, nonfocal. Physical therapy, pain regimen as prescribed. Radiological image appreciated. 2. Nondisplaced public rami fracture. Physical therapy, pain regimen, not safe for discharge, potentially needs 24/7 versus assisted facility. Continue to work on physical therapy. 3. Dyslipidemia. Continue statin. 4. Hypertension. Continue Norvasc and hydrochlorothiazide. 5. Dementia. Supportive care. 6. Deep vein thrombosis (DVT) prophylaxis. Heparin subcu. DISPOSITION PLANNING: Pending physical therapy, clinical improvement, may need 24/7 care versus assisted facility.
[2016-11-21 22:00] VITALS: BP 136/66
[2016-11-21] MEDS: ATORVASTATIN 10 MG TAB PO SCH (22:07)
[2016-11-22] MEDS: HEPARIN SOD (PORCINE) 5000 UNITS/ML VIAL SC SCH ×3 (05:21→20:21)
[2016-11-22 06:00] VITALS: BP 171/72
[2016-11-22 07:20] LABS: BASO % 0.9 % (0.0-1.0); EOS # 0.1 K/mm3 (0.0-0.50); EOS % 1.9 % (0.0-3.0); LARGE UNSTAINED CELL # 0.1 K/mm3 (0.0-0.4); LARGE UNSTAINED CELL % 1.4 % (0.0-4.0); LYMPH # 0.9 K/mm3 (1.5-4.5); LYMPH % 13.8 % (24.0-44.0); MEAN CORPUSCULAR HGB CONC 34.1 g/dl (32.0-36.5); MEAN CORPUSCULAR VOLUME 90.7 fl (80.0-96.0); MONO # 0.4 K/mm3 (0.0-0.8); MONO % 6.9 % (0.0-5.0); NEUTROPHILS # 4.4 K/mm3 (1.8-7.7); PLATELET COUNT, AUTOMATED 272 k/mm3 (150-450); RED CELL DISTRIBUTION WIDTH 14.2 % (11.5-14.5); RETIC HEMOGLOBIN CONTENT CHr 32.5 PG (24-36); RETICULOCYTE ABSOLUTE ADVIA212 81 x10(9)/L (17-77); WHITE BLOOD COUNT 5.8 K/mm3 (4.0-10.0)
[2016-11-22 07:22] LABS: REASON FOR REVIEW ANEMIA / RBC MORPH
[2016-11-22 07:36] LABS: ANION GAP 9 MEQ/L (8-16); BLOOD UREA NITROGEN 17 MG/DL (7-18); CALCIUM LEVEL 8.9 MG/DL (8.8-10.2); CARBON DIOXIDE LEVEL 28 MEQ/L (21-32); CHLORIDE LEVEL 101 MEQ/L (98-107); CREATININE FOR GFR 0.58 MG/DL (0.55-1.02); GLOMERULAR FILTRATION RATE > 60.0 (>32); GLUCOSE, FASTING 111 MG/DL (83-110); POTASSIUM SERUM 3.7 MEQ/L (3.5-5.1); SODIUM LEVEL 138 MEQ/L (136-145)
[2016-11-22 07:42] LABS: PERCENT SATURATION 22.8 % (13.2-45.0)
[2016-11-22 09:52] LABS: FOLATE 7.4 NG/ML (>5.4)
[2016-11-22] MEDS: ASPIRIN 81 MG ENTERIC TAB PO SCH (10:18)
[2016-11-22] MEDS: amLODIPine 5 MG TAB PO SCH (10:18)
[2016-11-22] MEDS: POTASSIUM CHLORIDE 10 MEQ SR TABLET PO SCH ×2 (10:18→20:21)
[2016-11-22] MEDS: CitaloPRAM (CeleXA) 20 MG TAB PO SCH (10:18)
[2016-11-22] MEDS: hydroCHLOROthiazide 25 MG TAB PO SCH (10:19)
[2016-11-22] MEDS: MULTIVITAMINS/MINERALS THERAP 1 TAB PO SCH (10:19)
[2016-11-22 14:00] VITALS: BP 164/76
--- NOTE | 2016-11-22 19:35 | IPN ---
DATE: 11/22/2016 Patient seen and examined. No acute events overnight. Patient is a poor historian due to severe dementia. Denies any chest pain, pressure, discomfort, shortness of breath. Tolerating oral. VITAL SIGNS: Temperature 98.4, pulse 86, respirations 14, blood pressure 171/72, pulse oximetry 97% on room air. LABORATORY DATA: WBC 5.8, hemoglobin and hematocrit 9.8 over 28.7, platelets 272. Chemistry: Sodium 138, potassium 3.7, chloride 101, bicarbonate 28, BUN 17, creatinine 0.58. PHYSICAL EXAMINATION: GENERAL: Patient alert, frail, arousable, in no acute distress. HEENT: Normocephalic, atraumatic. Moist mucous membranes. NEUROLOGIC: No focal deficits. Cranial nerves II-XII grossly intact. CARDIAC: Regular rate and rhythm. Normal S1, S2. 2/6 systolic murmur noted with history of aortic stenosis. PULMONARY: Bilaterally clear to auscultation. ABDOMEN: Soft, nontender. Positive bowel sounds. EXTREMITIES: No clubbing, cyanosis or edema. ASSESSMENT AND PLAN: This is an 89-year-old female patient with underlying medical history of dementia, hypertension, diabetes, diet-controlled, aortic stenosis with aortic regurgitation, transient ischemic attack (TIA), history of Alzheimer's dementia, glaucoma, presented status post unwitnessed fall in the bathroom, likely mechanical fall with nondisplaced pubic rami fracture. Problems: 1. Fall, unwitnessed in the bathroom with no head injury or loss of consciousness. Found to have an nondisplaced pubic rami fracture, likely from the fall. Patient with limited weightbearing secondary to pain. On admission, had no postictal state, no bowel or bladder incontinence, as per family, neurologically patient remained at baseline. No focal neurological exam. Physical therapy, pain regimen as prescribed. Radiological image appreciated. 2. Nondisplaced pubic rami fracture. Physical therapy, radiological image appreciated, physical therapy, pain regimen. Patient not safe for discharge, potentially needs 24/7 care versus [facility] facility. Continue working with physical therapy, patient and family services. 3. Dyslipidemia. Continue statin. 4. Hypertension. Continue Norvasc and hydrochlorothiazide. 5. Dementia. Supportive care. 6. Deep vein thrombosis (DVT) prophylaxis. Heparin subcutaneously. DISPOSITION PLANNING: Physical therapy, clinical improvement, patient needs 24/ care versus [facility] facility.
[2016-11-22] MEDS: FERROUS SULFATE 325MG TAB PO SCH (20:21)
[2016-11-22] MEDS: ATORVASTATIN 10 MG TAB PO SCH (20:21)
[2016-11-22] MEDS: SENOKOT S TAB PO SCH (20:21)
[2016-11-22] MEDS: ASCORBIC ACID 500 MG TAB PO SCH (20:21)
[2016-11-22 22:00] VITALS: BP 161/71
[2016-11-23] MEDS: HEPARIN SOD (PORCINE) 5000 UNITS/ML VIAL SC SCH ×3 (05:17→22:07)
[2016-11-23 06:00] VITALS: BP 139/67
[2016-11-23 06:54] LABS: BASO # 0.1 K/mm3 (0.0-0.2); BASO % 1.4 % (0.0-1.0); EOS # 0.2 K/mm3 (0.0-0.50); EOS % 3.6 % (0.0-3.0); LARGE UNSTAINED CELL # 0.1 K/mm3 (0.0-0.4); LARGE UNSTAINED CELL % 2.5 % (0.0-4.0); LYMPH # 1.2 K/mm3 (1.5-4.5); LYMPH % 21.9 % (24.0-44.0); MEAN CORPUSCULAR HEMOGLOBIN 31.2 pg (27.0-33.0); MEAN CORPUSCULAR VOLUME 91.8 fl (80.0-96.0); MONO # 0.5 K/mm3 (0.0-0.8); MONO % 8.4 % (0.0-5.0); NEUTROPHILS # 3.4 K/mm3 (1.8-7.7); NEUTROPHILS % 62.1 % (36.0-66.0); PLATELET COUNT, AUTOMATED 278 k/mm3 (150-450); RED CELL DISTRIBUTION WIDTH 14.2 % (11.5-14.5); WHITE BLOOD COUNT 5.5 K/mm3 (4.0-10.0)
[2016-11-23 07:06] LABS: ANION GAP 8 MEQ/L (8-16); BLOOD UREA NITROGEN 15 MG/DL (7-18); CALCIUM LEVEL 8.3 MG/DL (8.8-10.2); CARBON DIOXIDE LEVEL 29 MEQ/L (21-32); CHLORIDE LEVEL 99 MEQ/L (98-107); CREATININE FOR GFR 0.52 MG/DL (0.55-1.02); GLOMERULAR FILTRATION RATE > 60.0 (>32); GLUCOSE, FASTING 95 MG/DL (83-110); POTASSIUM SERUM 3.6 MEQ/L (3.5-5.1); SODIUM LEVEL 136 MEQ/L (136-145)
[2016-11-23] MEDS: CitaloPRAM (CeleXA) 20 MG TAB PO SCH (09:00)
[2016-11-23] MEDS: SENOKOT S TAB PO SCH ×2 (09:00→22:06)
[2016-11-23] MEDS: ASPIRIN 81 MG ENTERIC TAB PO SCH (09:00)
[2016-11-23] MEDS: MULTIVITAMINS/MINERALS THERAP 1 TAB PO SCH (09:01)
[2016-11-23] MEDS: ASCORBIC ACID 500 MG TAB PO SCH ×2 (09:01→22:06)
[2016-11-23] MEDS: hydroCHLOROthiazide 25 MG TAB PO SCH (09:01)
[2016-11-23] MEDS: POTASSIUM CHLORIDE 10 MEQ SR TABLET PO SCH ×2 (09:01→22:07)
[2016-11-23] MEDS: FERROUS SULFATE 325MG TAB PO SCH ×2 (09:01→22:07)
[2016-11-23] MEDS: amLODIPine 10 MG TAB PO SCH (09:01)
[2016-11-23 14:00] VITALS: BP 135/64
[2016-11-23] MEDS: PERCOCET 5MG/325MG TAB PO PRN ×2 (16:40→22:06)
--- NOTE | 2016-11-23 16:48 | IPN ---
DATE: 11/23/2016 SUBJECTIVE: Patient seen and examined. Alert and oriented times one. Denies chest pain, pressure, discomfort, shortness of breath. Tolerating oral. Baseline dementia. Poor historian. VITAL SIGNS: Temperature 98.5, pulse 83, respirations 14, blood pressure 139/67, pulse oximetry 99% on room air. LABORATORY DATA: WBC 5.5, hemoglobin and hematocrit 9.1 over 26.7, platelets 278. Chemistry: Sodium 136, potassium 3.6, chloride 99, bicarbonate 29, BUN 15, creatinine 0.52. PHYSICAL EXAMINATION: GENERAL: The patient alert and oriented to person only. Does not know why she is at the hospital. Needs to be reoriented. In no acute distress. Frail. HEENT: Normocephalic, atraumatic. Moist mucous membranes. NEUROLOGIC: No focal deficits. Cranial nerves II through XII grossly intact. CARDIAC: Regular rate and rhythm. Normal S1, S2. 2/6 systolic murmur noticed. History of aortic stenosis. PULMONARY: Bilaterally clear to auscultation. ABDOMEN: Soft, nontender. Positive bowel sounds. EXTREMITIES: No clubbing, cyanosis or edema. ASSESSMENT AND PLAN: This is an 89-year-old female patient with underlying medical history of dementia, hypertension, diabetes diet controlled, aortic stenosis with aortic regurgitation, transient ischemic attack (TIA), history of Alzheimer's dementia, glaucoma, presented status post unwitnessed fall in the bathroom, likely mechanical with nondisplaced pubic rami fracture. 1. Fall unwitnessed in the bathroom with no head injury or loss of consciousness. Found to have a nondisplaced pubic rami fracture, likely from fall. Patient with limited weightbearing secondary to pain. On admission no postictal state, bowel or bladder incontinence as per family. Neurologically, the patient remains at baseline. No new focal neurological deficit. Physical therapy. Pain medication. Radiology imaging appreciated. 2. Nondisplaced pubic rami fracture. Physical therapy. Radiological image, pain regimen as prescribed. Not a safe discharge, will need [facility]. Continue to work with physical therapy. Patient and family services (PFS) consulted. 3. Dyslipidemia. Continue statin. 4. Norvasc dosage has been increased. Continue hydrochlorothiazide . 5. Dementia, supportive care. 6. Deep venous thrombosis (DVT) prophylaxis. Heparin subcutaneous. DISPOSITION PLANNING: Physical therapy. Clinical improvement. The patient will need 24/7 care versus [facility]. PFS consulted. Patient currently is made alternate level of care.
[2016-11-23 22:00] VITALS: BP 133/62
[2016-11-23] MEDS: ATORVASTATIN 10 MG TAB PO SCH (22:07)
[2016-11-24 06:00] VITALS: BP 127/59
[2016-11-24] MEDS: HEPARIN SOD (PORCINE) 5000 UNITS/ML VIAL SC SCH ×3 (06:11→20:59)
[2016-11-24 06:37] LABS: BASO # 0.1 K/mm3 (0.0-0.2); BASO % 1.2 % (0.0-1.0); EOS # 0.1 K/mm3 (0.0-0.50); EOS % 2.6 % (0.0-3.0); LARGE UNSTAINED CELL # 0.1 K/mm3 (0.0-0.4); LARGE UNSTAINED CELL % 2.2 % (0.0-4.0); LYMPH # 1.4 K/mm3 (1.5-4.5); LYMPH % 24.8 % (24.0-44.0); MEAN CORPUSCULAR HEMOGLOBIN 31.8 pg (27.0-33.0); MEAN CORPUSCULAR HGB CONC 34.3 g/dl (32.0-36.5); MEAN CORPUSCULAR VOLUME 92.6 fl (80.0-96.0); MONO # 0.4 K/mm3 (0.0-0.8); MONO % 7.3 % (0.0-5.0); NEUTROPHILS # 3.1 K/mm3 (1.8-7.7); NEUTROPHILS % 61.9 % (36.0-66.0); PLATELET COUNT, AUTOMATED 289 k/mm3 (150-450); RED CELL DISTRIBUTION WIDTH 14.5 % (11.5-14.5); WHITE BLOOD COUNT 5.1 K/mm3 (4.0-10.0)
[2016-11-24 06:51] LABS: ANION GAP 9 MEQ/L (8-16); BLOOD UREA NITROGEN 21 MG/DL (7-18); CALCIUM LEVEL 8.2 MG/DL (8.8-10.2); CARBON DIOXIDE LEVEL 29 MEQ/L (21-32); CHLORIDE LEVEL 99 MEQ/L (98-107); CREATININE FOR GFR 0.59 MG/DL (0.55-1.02); GLOMERULAR FILTRATION RATE > 60.0 (>32); GLUCOSE, FASTING 92 MG/DL (83-110); MAGNESIUM LEVEL 2.1 MG/DL (1.8-2.4); POTASSIUM SERUM 3.7 MEQ/L (3.5-5.1); SODIUM LEVEL 137 MEQ/L (136-145)
[2016-11-24] MEDS: CitaloPRAM (CeleXA) 20 MG TAB PO SCH (09:50)
[2016-11-24] MEDS: ASPIRIN 81 MG ENTERIC TAB PO SCH (09:50)
[2016-11-24] MEDS: hydroCHLOROthiazide 25 MG TAB PO SCH (09:50)
[2016-11-24] MEDS: SENOKOT S TAB PO SCH ×2 (09:51→20:59)
[2016-11-24] MEDS: MULTIVITAMINS/MINERALS THERAP 1 TAB PO SCH (09:51)
[2016-11-24] MEDS: amLODIPine 10 MG TAB PO SCH (09:51)
[2016-11-24] MEDS: FERROUS SULFATE 325MG TAB PO SCH ×2 (09:51→20:59)
[2016-11-24] MEDS: POTASSIUM CHLORIDE 10 MEQ SR TABLET PO SCH ×2 (09:51→20:59)
[2016-11-24] MEDS: ASCORBIC ACID 500 MG TAB PO SCH ×2 (09:51→20:59)
[2016-11-24 14:00] VITALS: BP 141/65
[2016-11-24] MEDS: ATORVASTATIN 10 MG TAB PO SCH (20:59)
[2016-11-24] MEDS: PERCOCET 5MG/325MG TAB PO PRN (20:59)
[2016-11-24 22:00] VITALS: BP 166/76
[2016-11-25] MEDS: PERCOCET 5MG/325MG TAB PO PRN ×3 (05:30→20:29)
[2016-11-25] MEDS: HEPARIN SOD (PORCINE) 5000 UNITS/ML VIAL SC SCH ×3 (05:30→20:29)
[2016-11-25 06:00] VITALS: BP 166/86
[2016-11-25 06:54] LABS: MEAN CORPUSCULAR HEMOGLOBIN 31.6 pg (27.0-33.0); MEAN CORPUSCULAR HGB CONC 34.7 g/dl (32.0-36.5); MEAN CORPUSCULAR VOLUME 91.1 fl (80.0-96.0); RED CELL DISTRIBUTION WIDTH 14.7 % (11.5-14.5); WHITE BLOOD COUNT 6.2 K/mm3 (4.0-10.0)
[2016-11-25 07:10] LABS: ANION GAP 5 MEQ/L (8-16); BLOOD UREA NITROGEN 16 MG/DL (7-18); CALCIUM LEVEL 8.8 MG/DL (8.8-10.2); CARBON DIOXIDE LEVEL 32 MEQ/L (21-32); CHLORIDE LEVEL 99 MEQ/L (98-107); CREATININE FOR GFR 0.58 MG/DL (0.55-1.02); GLOMERULAR FILTRATION RATE > 60.0 (>32); GLUCOSE, FASTING 92 MG/DL (83-110); POTASSIUM SERUM 3.8 MEQ/L (3.5-5.1); SODIUM LEVEL 136 MEQ/L (136-145)
[2016-11-25] MEDS: MULTIVITAMINS/MINERALS THERAP 1 TAB PO SCH (09:22)
[2016-11-25] MEDS: ASCORBIC ACID 500 MG TAB PO SCH ×2 (09:23→20:28)
[2016-11-25] MEDS: ASPIRIN 81 MG ENTERIC TAB PO SCH (09:23)
[2016-11-25] MEDS: CitaloPRAM (CeleXA) 20 MG TAB PO SCH (09:23)
[2016-11-25] MEDS: amLODIPine 10 MG TAB PO SCH (09:23)
[2016-11-25] MEDS: POTASSIUM CHLORIDE 10 MEQ SR TABLET PO SCH ×2 (09:23→20:29)
[2016-11-25] MEDS: SENOKOT S TAB PO SCH ×2 (09:23→20:29)
[2016-11-25] MEDS: hydroCHLOROthiazide 25 MG TAB PO SCH (09:23)
[2016-11-25] MEDS: FERROUS SULFATE 325MG TAB PO SCH ×2 (09:23→20:28)
[2016-11-25 14:00] VITALS: BP 152/75
[2016-11-25] MEDS: ATORVASTATIN 10 MG TAB PO SCH (20:28)
[2016-11-26] MEDS: HEPARIN SOD (PORCINE) 5000 UNITS/ML VIAL SC SCH ×3 (05:16→21:22)
[2016-11-26 06:00] VITALS: BP 134/64
[2016-11-26] MEDS: hydroCHLOROthiazide 25 MG TAB PO SCH (08:59)
[2016-11-26] MEDS: ASPIRIN 81 MG ENTERIC TAB PO SCH (08:59)
[2016-11-26] MEDS: FERROUS SULFATE 325MG TAB PO SCH ×2 (08:59→21:16)
[2016-11-26] MEDS: CitaloPRAM (CeleXA) 20 MG TAB PO SCH (08:59)
[2016-11-26] MEDS: MULTIVITAMINS/MINERALS THERAP 1 TAB PO SCH (09:00)
[2016-11-26] MEDS: amLODIPine 10 MG TAB PO SCH (09:00)
[2016-11-26] MEDS: SENOKOT S TAB PO SCH ×2 (09:00→21:16)
[2016-11-26] MEDS: ASCORBIC ACID 500 MG TAB PO SCH ×2 (09:00→21:00)
[2016-11-26] MEDS: POTASSIUM CHLORIDE 10 MEQ SR TABLET PO SCH ×2 (09:00→21:16)
[2016-11-26 10:36] LABS: MEAN CORPUSCULAR HEMOGLOBIN 31.1 pg (27.0-33.0); MEAN CORPUSCULAR HGB CONC 33.4 g/dl (32.0-36.5); MEAN CORPUSCULAR VOLUME 93.2 fl (80.0-96.0); RED CELL DISTRIBUTION WIDTH 14.8 % (11.5-14.5); WHITE BLOOD COUNT 6.4 K/mm3 (4.0-10.0)
[2016-11-26 14:00] VITALS: BP 142/65
[2016-11-26] MEDS: ATORVASTATIN 10 MG TAB PO SCH (21:16)
[2016-11-26] MEDS: ACETAMINOPHEN TAB 650MG DOSE (2X325MG) PO PRN (21:17)
[2016-11-27] MEDS: PERCOCET 5MG/325MG TAB PO PRN (01:22)
[2016-11-27] MEDS: HEPARIN SOD (PORCINE) 5000 UNITS/ML VIAL SC SCH (05:15)
[2016-11-27 06:00] VITALS: BP 106/57
[2016-11-27] MEDS ORDERED: PERCOCET PO (06:10)
[2016-11-27] MEDS ORDERED: AMLO10TA2 PO (06:10)
[2016-11-27] MEDS ORDERED: FERR1TAB8 PO (06:10)
[2016-11-27] MEDS ORDERED: BISAC5TA PO (06:10)
[2016-11-27] MEDS ORDERED: SENN1TAB2 PO (06:10)
[2016-11-27] MEDS: SENOKOT S TAB PO SCH (09:09)
[2016-11-27] MEDS: ASCORBIC ACID 500 MG TAB PO SCH (09:09)
[2016-11-27] MEDS: POTASSIUM CHLORIDE 10 MEQ SR TABLET PO SCH (09:09)
[2016-11-27] MEDS: CitaloPRAM (CeleXA) 20 MG TAB PO SCH (09:09)
[2016-11-27 09:10] VITALS: BP 106/57
[2016-11-27] MEDS: FERROUS SULFATE 325MG TAB PO SCH (09:10)
[2016-11-27] MEDS: ASPIRIN 81 MG ENTERIC TAB PO SCH (09:10)
[2016-11-27] MEDS: amLODIPine 10 MG TAB PO SCH (09:10)
[2016-11-27] MEDS: hydroCHLOROthiazide 25 MG TAB PO SCH (09:10)
[2016-11-27] MEDS: MULTIVITAMINS/MINERALS THERAP 1 TAB PO SCH (09:11)
--- NOTE | 2016-11-28 21:56 | DSES ---
DATE OF ADMISSION: 11/17/2016 DATE OF DISCHARGE: 11/27/2016 DISCHARGE DIAGNOSIS: Fall SECONDARY DIAGNOSIS: 1. Nondisplaced pubic rami fracture. 2. Dementia. 3. Dyslipidemia. 4. Hypertension. HOSPITAL COURSE: The patient is an 89-year-old female who lives with her adopted son with an unwitnessed fall at home. She got up and ambulated without any loss of consciousness following the fall. However, she had significant pain and was brought to the emergency room. She was diagnosed with a nondisplaced pubic rami fracture. She worked with physical therapy and was undergoing pain control. However, given her advanced dementia, she had difficulty following instructions and her memory now for assistance. Patient Family Services (PFS) was consulted. Physical therapy (PT) did evaluate the patient and recommended 24/7 care by [facility] facility. After lengthy discussion with the patient and monitoring the patient's progress, she was made healthy status on 11/23/2016. At this time, a bed has been available for her at [facility]). SUBJECTIVE: This morning the patient feels well and has no complaints. She is oriented to person and hospital and the city, but not to time or situation. She does not know why she is here. OBJECTIVE: VITAL SIGNS: Temperature 98.4, pulse 67, respiratory rate 18, blood pressure (BP) 106/57, oxygen saturation 96% on room air. GENERAL: She is a frail, elderly female, sitting up in bed, feeding herself, eating breakfast, she is in no distress. HEENT: Cranial nerves II/XII grossly intact. She has moist mucous membranes. Elevated jugular venous pressure (JVP). CARDIOVASCULAR EXAM: S1, S2 regular with a pansystolic murmur. RESPIRATORY EXAM: Clear. ABDOMINAL EXAM: Benign. EXTREMITIES: No clubbing, cyanosis or edema. LABORATORY STUDIES: White blood count (WBC) is 6.4, hemoglobin 9.3, platelet count 403. Chemistry panel: Sodium 136, potassium 3.8, chloride 99, bicarbonate 32, BUN 15, creatine 0.5. She had B12 level, which was within normal limits, as well as thyroid simulating hormone (TSH) within normal limits. She has had a CT scan of her head that revealed no acute hemorrhage or infarct. Moderate age related atrophy and small vessel ischemic disease. She had a CT of the hip which revealed acute nondisplaced fracture of the right inferior pubic rami and moderate right hip osteoarthritis and an intact open reduction and internal fixation of the proximal right femur. ASSESSMENT AND PLAN: This is an 89-year-old female status post fall with a nondisplaced pubic rami fracture. PROBLEMS; 1. Nondisplaced pubic rami fracture, activity as tolerated, physical therapy (PT). The patient is being discharged [facility]. Continue physical therapy (PT)/occupational therapy (OT). MEDICATIONS AT THE TIME OF DISCHARGE: - Norvasc 10 mg daily - Bisacodyl 5 mg once daily - ferrous sulfate 325 mg twice a day - Percocet one tablet as need for moderate pain - senna plus 8.6-50 mg twice daily - aspirin 81 mg daily - atorvastatin 10 mg at bedtime (q.h.s.) - Citalopram 10 mg daily - donepezil 5 mg at bedtime (q.h.s.) - hydrochlorothiazide 25 mg daily - multivitamins one tablet daily - potassium chloride 10 mEq twice a day Greater than 30 minutes spent organizing disposition.
== END 2016-11-27 12:30 | DRG 536 ==
LOC: M ED 22:10 → EDBD 22:10 → M ED INP 11-17 01:49 → M MS5PR 11-17 03:14
PROVIDERS: ADMIT Hospitalist; ATTEND Internal Medicine
DX: S32.591A Other specified fracture of right pubis, initial encounter for closed fracture (principal); E78.5 Hyperlipidemia, unspecified; I10 Essential (primary) hypertension; G30.9 Alzheimer's disease, unspecified; W18.30XA Fall on same level, unspecified, initial encounter; Y92.009 Unspecified place in unspecified non-institutional (private) residence as the place of occurrence of the external cause; I35.0 Nonrheumatic aortic (valve) stenosis; F02.80 Dementia in other diseases classified elsewhere, unspecified severity, without behavioral disturbance, psychotic disturbance, mood disturbance, and anxiety; Z86.73 Personal history of transient ischemic attack (TIA), and cerebral infarction without residual deficits; H40.9 Unspecified glaucoma; E11.9 Type 2 diabetes mellitus without complications; Z87.891 Personal history of nicotine dependence; Z91.041 Radiographic dye allergy status; E87.6 Hypokalemia; Z79.899 Other long term (current) drug therapy

== ENCOUNTER → 2016-12-03 | Outpatient (REF) ==
[~2016-12-03] MED LIST changes: +AMLO10TA2 PO; +ASPI81TA21 PO; +BISAC5TA PO; +FERR1TAB8 PO; +PERCOCET PO; +SENN1TAB2 PO; +VITMTA PO
[2016-12-03 12:07] LABS: MEAN CORPUSCULAR HEMOGLOBIN 31.3 pg (27.0-33.0); MEAN CORPUSCULAR HGB CONC 33.7 g/dl (32.0-36.5); MEAN CORPUSCULAR VOLUME 92.8 fl (80.0-96.0); RED CELL DISTRIBUTION WIDTH 15.1 % (11.5-14.5); WHITE BLOOD COUNT 7.1 K/mm3 (4.0-10.0)
[2016-12-03 12:46] LABS: ANION GAP 9 MEQ/L (8-16); BLOOD UREA NITROGEN 14 MG/DL (7-18); CALCIUM LEVEL 8.9 MG/DL (8.8-10.2); CARBON DIOXIDE LEVEL 28 MEQ/L (21-32); CHLORIDE LEVEL 91 MEQ/L (98-107); CREATININE FOR GFR 0.54 MG/DL (0.55-1.02); GLOMERULAR FILTRATION RATE > 60.0 (>32); GLUCOSE, FASTING 141 MG/DL (83-110); POTASSIUM SERUM 3.9 MEQ/L (3.5-5.1); SODIUM LEVEL 128 MEQ/L (136-145)
== END ==
PROVIDERS: ATTEND Internal Medicine
DX: D64.9 Anemia, unspecified (principal); I10 Essential (primary) hypertension

== ENCOUNTER → 2016-12-04 | Outpatient (REF) | payer MEDICARE ==
--- NOTE | 2016-12-04 14:56 | REP ---
Duplex extremity venous ultrasound: Right lower extremity. History: Right lower extremity swelling. Findings: The deep veins are anechoic and fully compressible from the groin to the popliteal fossa in the right lower extremity. Color flow imaging is homogeneous. Spectral Doppler interrogation demonstrates intact respiratory variation in flow and normal manual augmentation of flow. There is no evidence of deep vein thrombosis. Impression: Negative right lower extremity duplex venous ultrasound. No evidence of deep vein thrombosis. Signed by Misbah Méndez MD 12/04/2016 02:46 P
== END ==
LOC: M RAD 12:00 → EDSTATUS 14:30
PROVIDERS: ATTEND Physician Assistant
DX: R60.0 Localized edema (principal); E87.1 Hypo-osmolality and hyponatremia; Z91.041 Radiographic dye allergy status

== ENCOUNTER → 2016-12-10 | Outpatient (REF) | payer MEDICARE ==
[2016-12-10 11:23] LABS: MEAN CORPUSCULAR HEMOGLOBIN 31.3 pg (27.0-33.0); MEAN CORPUSCULAR HGB CONC 32.3 g/dl (32.0-36.5); MEAN CORPUSCULAR VOLUME 96.9 fl (80.0-96.0); RED CELL DISTRIBUTION WIDTH 14.9 % (11.5-14.5); WHITE BLOOD COUNT 5.2 K/mm3 (4.0-10.0)
[2016-12-10 11:51] LABS: ANION GAP 11 MEQ/L (8-16); BLOOD UREA NITROGEN 14 MG/DL (7-18); CALCIUM LEVEL 8.9 MG/DL (8.8-10.2); CARBON DIOXIDE LEVEL 25 MEQ/L (21-32); CHLORIDE LEVEL 99 MEQ/L (98-107); CREATININE FOR GFR 0.63 MG/DL (0.55-1.02); GLOMERULAR FILTRATION RATE > 60.0 (>32); GLUCOSE, FASTING 122 MG/DL (83-110); POTASSIUM SERUM 4.5 MEQ/L (3.5-5.1); SODIUM LEVEL 135 MEQ/L (136-145)
== END ==
PROVIDERS: ATTEND Internal Medicine
DX: D64.9 Anemia, unspecified (principal)

== ENCOUNTER → 2016-12-17 | Outpatient (REF) ==
[2016-12-17 10:37] LABS: MEAN CORPUSCULAR HEMOGLOBIN 31.6 pg (27.0-33.0); MEAN CORPUSCULAR VOLUME 95.8 fl (80.0-96.0); RED CELL DISTRIBUTION WIDTH 14.9 % (11.5-14.5); WHITE BLOOD COUNT 5.5 K/mm3 (4.0-10.0)
[2016-12-17 11:07] LABS: ANION GAP 10 MEQ/L (8-16); BLOOD UREA NITROGEN 15 MG/DL (7-18); CALCIUM LEVEL 8.7 MG/DL (8.8-10.2); CARBON DIOXIDE LEVEL 27 MEQ/L (21-32); CHLORIDE LEVEL 99 MEQ/L (98-107); CREATININE FOR GFR 0.64 MG/DL (0.55-1.02); GLOMERULAR FILTRATION RATE > 60.0 (>32); GLUCOSE, FASTING 160 MG/DL (83-110); SODIUM LEVEL 136 MEQ/L (136-145)
== END ==
PROVIDERS: ATTEND Internal Medicine
DX: D64.9 Anemia, unspecified (principal); I10 Essential (primary) hypertension

== ENCOUNTER → 2016-12-25 | Outpatient (REF) | payer MEDICARE ==
[2016-12-25 11:47] LABS: MEAN CORPUSCULAR HEMOGLOBIN 31.8 pg (27.0-33.0); MEAN CORPUSCULAR VOLUME 96.5 fl (80.0-96.0); RED CELL DISTRIBUTION WIDTH 14.3 % (11.5-14.5); WHITE BLOOD COUNT 4.8 K/mm3 (4.0-10.0)
[2016-12-25 12:47] LABS: ANION GAP 12 MEQ/L (8-16); BLOOD UREA NITROGEN 17 MG/DL (7-18); CALCIUM LEVEL 8.6 MG/DL (8.8-10.2); CARBON DIOXIDE LEVEL 24 MEQ/L (21-32); CHLORIDE LEVEL 102 MEQ/L (98-107); GLOMERULAR FILTRATION RATE > 60.0 (>32); GLUCOSE, FASTING 148 MG/DL (83-110); POTASSIUM SERUM 4.1 MEQ/L (3.5-5.1); SODIUM LEVEL 138 MEQ/L (136-145)
== END ==
PROVIDERS: ATTEND Internal Medicine
DX: I10 Essential (primary) hypertension (principal)